=== PATIENT | female | born 1990 | race Caucasian/White ===

== ENCOUNTER 2017-09-10 22:51 | Emergency (ER) | payer OTHER ==
[2017-09-10 23:26] LABS: URINE HCG POC HCG POSITIVE (Negative)
[2017-09-11 00:08] LABS: AGAP ISTAT 16 mmol/L (6-14); BUN ISTAT 5 mg/dL (8-26); CHLORIDE ISTAT 101 mmol/L (98-110); CREATININE ISTAT 0.5 mg/dL (0.5-1.4); GLUCOSE ISTAT 106 mg/dL (70-99); HEMATOCRIT ISTAT 29 % (36-40); HEMOGLOBIN ISTAT 9.9 g/dL (12-15); ION CA ISTAT 1.24 mmol/L (1.13-1.32); POTASSIUM ISTAT 3.6 mmol/L (3.5-5.0); SODIUM ISTAT 137 mmol/L (135-145); TOT CO2 ISTAT 25 mmol/L (23-32)
== END 2017-09-11 00:37 | disposition home or self-care (01) ==
LOC: ER 09-11 00:37
DX: O46.92 Antepartum hemorrhage, unspecified, second trimester (principal); O99.012 Anemia complicating pregnancy, second trimester; Z3A.18 18 weeks gestation of pregnancy
CPT/HCPCS: 36415; 80047; 81025; 85014; 85018; 99282

== ENCOUNTER 2018-08-08 12:05 | Emergency (ER) | payer SELFPAY ==
[~2018-08-08] VITALS: Ht 162.6 cm; Wt 88.0 kg
[2018-08-08] MEDS ORDERED: fentaNYL PF VIAL 100 MCG/2 ML VIAL IV ONE (12:45)
[2018-08-08] MEDS ORDERED: ONDANSETRON PF 4 MG/2 ML VIAL. IV ONE (12:45)
[2018-08-08] MEDS ORDERED: IV NORMAL SALINE 1000ML BAG 1,000 ML IV ONE (12:45)
[2018-08-08 13:03] LABS: BASO % 1 % (0-3); EOS # 0.2 x10^3/uL (0.0-0.7); EOS % 3 % (0-3); HEMATOCRIT 38.9 % (36.0-47.0); HEMOGLOBIN 13.6 g/dL (12.0-15.5); LYMPH # 2.1 x10^3/uL (1.0-4.8); LYMPH % 30 % (24-48); MEAN CORPUSCULAR HEMOGLOBIN 30 pg (25-35); MEAN CORPUSCULAR HGB CONC 35 g/dL (31-37); MEAN CORPUSCULAR VOLUME 87 fL (79-100); MONO # 0.4 x10^3/uL (0.0-1.1); MONO % 5 % (0-9); NEUT # 4.3 x10^3uL (1.8-7.7); NEUT % 62 % (31-73); PLATELET COUNT 389 x10^3/uL (140-400); RED BLOOD COUNT 4.49 x10^6/uL (3.50-5.40); RED CELL DISTRIBUTION WIDTH 13.6 % (11.5-14.5)
[2018-08-08 13:06] LABS: CALCIUM 9.2 mg/dL (8.5-10.1); CREATININE 0.9 mg/dL (0.6-1.0); GFR 74.6; POTASSIUM 3.7 mmol/L (3.5-5.1)
[2018-08-08 13:12] LABS: ALBUMIN 3.5 g/dL (3.4-5.0); ALBUMIN/GLOBULIN RATIO 0.7 (1.0-1.7); TOTAL BILIRUBIN 0.3 mg/dL (0.2-1.0); TOTAL PROTEIN 8.3 g/dL (6.4-8.2)
--- NOTE | 2018-08-08 14:10 | RAD ---
Limited ultrasound abdomen 08/08/2018 INDICATION: Worsening right upper quadrant abdominal pain with history of known gallstones. COMPARISON: None available TECHNIQUE: Sonographic evaluation of the abdomen was performed utilizing grayscale and color Doppler. FINDINGS: Calcified gallstones are identified within the gallbladder. There is no pericholecystic fluid or gallbladder wall thickening. Negative sonographic Donohue sign. Common bile duct measures 3 mm. Aorta and IVC are normal in appearance. Hepatic parenchyma is homogeneous in echotexture. There is a hyperechoic mass measuring 18 x 13 x 21 mm in the right hepatic lobe is favored to represent a hemangioma in the absence of underlying hepatic disease. There is no intrahepatic or extrahepatic biliary ductal dilatation. Hepatopedal flow is identified in the portal venous system. Pancreas is normal in appearance. The right kidney measures 10.8 x 4.2 x 4.4 cm. There is no hydronephrosis. No suspicious renal mass. No calculi are identified. There is no free fluid in the right upper quadrant. IMPRESSION: 1. Cholelithiasis without sonographic evidence for acute cholecystitis. 2. Hyperechoic lesion within the liver measuring 18 x 13 x 21 mm. Finding is indeterminate, however most favors to represent hepatic hemangioma in the absence of hepatocellular disease. Correlate with hepatic enzymes. Hepatic adenoma may have similar appearance. Electronically signed by: Rosina Sharpe MD (08/08/2018 2:07 PM) [facility]
--- NOTE | 2018-08-08 14:23 | PHYS DOC ---
Past Medical History Past Medical History: Other Additional Past Medical Histor: CHOLECYSTITIS Past Surgical History: Other Additional Past Surgical Histo: LASIK Alcohol Use: None Drug Use: None Adult General Chief Complaint Chief Complaint: ABDOMINAL PAIN HPI HPI Patient is a 27 year old female presenting with recurrent abdominal pain since June 27 intermittent in nature comes and goes worse last few days with occasional vomiting unable to keep anything down she says she feels dehydrated she called Dr. Little and apparently there is a surgery that will be scheduled but they're working through some paperwork she tells me. Review of Systems Review of Systems Constitutional: Denies fever or chills [] Eyes: Denies change in visual acuity, redness, or eye pain [] HENT: Denies nasal congestion or sore throat [] Respiratory: Denies cough or shortness of breath [] Cardiovascular: No additional information not addressed in HPI [] GI: Musculoskeletal: Denies back pain or joint pain [] Integument: Denies rash or skin lesions [] Neurologic: Denies headache, focal weakness or sensory changes [] Endocrine: Denies polyuria or polydipsia [] All other systems were reviewed and found to be within normal limits, except as documented in this note. Current Medications Current Medications Current Medications Medications (Trade) Dose Ordered Sig/Bart Start Time Stop Time Status Last Admin Dose Admin Fentanyl Citrate (Fentanyl 2ml Vial) 50 mcg 1X ONCE 08/08/18 12:45 08/08/18 12:46 DC 08/08/18 12:52 50 MCG Ondansetron HCl (Zofran) 4 mg 1X ONCE 08/08/18 12:45 08/08/18 12:46 DC 08/08/18 12:51 4 MG Sodium Chloride 1,000 ml @ 1,000 mls/hr 1X ONCE 08/08/18 12:45 08/08/18 13:44 DC 08/08/18 12:51 1,000 MLS/HR Allergies Allergies Allergies Coded Allergies Type Severity Reaction Last Updated Verified No Known Drug Allergies 09/30/15 No Physical Exam Physical Exam Constitutional: Well developed, well nourished, no acute distress, non-toxic appearance. [] HENT: Normocephalic, atraumatic, bilateral external ears normal, oropharynx moist, no oral exudates, nose normal. [] Eyes: PERRLA, EOMI, conjunctiva normal, no discharge. [] Neck: Normal range of motion, no tenderness, supple, no stridor. [] Cardiovascular:Heart rate regular rhythm, no murmur [] Lungs & Thorax: Bilateral breath sounds clear to auscultation [] Abdomen: Bowel sounds normal, soft, right upper quadrant with negative Donohue's tenderness, no masses, no pulsatile masses. [] Skin: Warm, dry, no erythema, no rash. [] Back: No tenderness, no CVA tenderness. [] Extremities: No tenderness, no cyanosis, no clubbing, ROM intact, no edema. [] Neurologic: Alert and oriented X 3, normal motor function, normal sensory function, no focal deficits noted. [] Psychologic: Affect normal, judgement normal, mood normal. [] Current Patient Data Vital Signs Vital Signs Date Time Temp Pulse Resp B/P (MAP) Pulse Ox O2 Delivery O2 Flow Rate FiO2 08/08/18 12:10 97.7 94 18 122/70 (87) 97 Room Air 97.7 Lab Values Laboratory Tests Test 08/08/18 12:40 White Blood Count 7.0 x10^3/uL (4.0-11.0) Red Blood Count 4.49 x10^6/uL (3.50-5.40) Hemoglobin 13.6 g/dL (12.0-15.5) Hematocrit 38.9 % (36.0-47.0) Mean Corpuscular Volume 87 fL (79-100) Mean Corpuscular Hemoglobin 30 pg (25-35) Mean Corpuscular Hemoglobin Concent 35 g/dL (31-37) Red Cell Distribution Width 13.6 % (11.5-14.5) Platelet Count 389 x10^3/uL (140-400) Neutrophils (%) (Auto) 62 % (31-73) Lymphocytes (%) (Auto) 30 % (24-48) Monocytes (%) (Auto) 5 % (0-9) Eosinophils (%) (Auto) 3 % (0-3) Basophils (%) (Auto) 1 % (0-3) Neutrophils # (Auto) 4.3 x10^3uL (1.8-7.7) Lymphocytes # (Auto) 2.1 x10^3/uL (1.0-4.8) Monocytes # (Auto) 0.4 x10^3/uL (0.0-1.1) Eosinophils # (Auto) 0.2 x10^3/uL (0.0-0.7) Basophils # (Auto) 0.0 x10^3/uL (0.0-0.2) Sodium Level 140 mmol/L (136-145) Potassium Level 3.7 mmol/L (3.5-5.1) Chloride Level 104 mmol/L (98-107) Carbon Dioxide Level 23 mmol/L (21-32) Anion Gap 13 (6-14) Blood Urea Nitrogen 7 mg/dL (7-20) Creatinine 0.9 mg/dL (0.6-1.0) Estimated GFR (Cockcroft-Gault) 74.6 BUN/Creatinine Ratio 8 (6-20) Glucose Level 108 mg/dL (70-99) H Calcium Level 9.2 mg/dL (8.5-10.1) Total Bilirubin 0.3 mg/dL (0.2-1.0) Aspartate Amino Transferase (AST) 20 U/L (15-37) Alanine Aminotransferase (ALT) 24 U/L (14-59) Alkaline Phosphatase 89 U/L (46-116) Total Protein 8.3 g/dL (6.4-8.2) H Albumin 3.5 g/dL (3.4-5.0) Albumin/Globulin Ratio 0.7 (1.0-1.7) L Lipase 123 U/L (73-393) Laboratory Tests 08/08/18 12:40 Laboratory Tests 08/08/18 12:40 EKG EKG [] Radiology/Procedures Radiology/Procedures [] Impressions: IMPRESSION: 1. Cholelithiasis without sonographic evidence for acute cholecystitis. 2. Hyperechoic lesion within the liver measuring 18 x 13 x 21 mm. Finding is indeterminate, however most favors to represent hepatic hemangioma in the absence of hepatocellular disease. Correlate with hepatic enzymes. Hepatic adenoma may have similar appearance. Electronically signed by: Rosina Sharpe MD (08/08/2018 2:07 PM) [facility] Course & Med Decision Making Course & Med Decision Making Pertinent Labs and Imaging studies reviewed. (See chart for details) []27-year-old female presenting with right upper quadrant pain L these are essentially normal ultrasound shows C cholelithiasis with no infection. I did speak with Dr. Villegas who felt to be reasonable to manage this patient as an outpatient given that there is no cholecystitis I agree. vanda Barry Disclaimer Asha Disclaimer This electronic medical record was generated, in whole or in part, using a voice recognition dictation system. Departure Departure Impression: Primary Impression: Cholelithiasis Disposition: HOME, SELF-CARE Admitting Physician: Other Condition: STABLE Referrals: NO PCP (PCP) HARSH ALTAMIRANO MD Aug 08, 2018 14:23
[2018-08-08 14:26] LABS: BILIRUBIN,URINE SMALL (NEG); CLARITY,URINE CLEAR; COLOR,URINE AMBER; NITRITE,URINE NEGATIVE (NEG); PROTEIN,URINE 30 mg/dL (NEG-TRACE)
[2018-08-08] MEDS ORDERED: HYDR-3164 PO (14:29)
[2018-08-08] MEDS ORDERED: ONDA4TAB7 PO (14:29)
[2018-08-08 14:30] VITALS: BP 122/55
[2018-08-08 14:40] LABS: BACTERIA,URINE MODERATE /HPF (0-FEW); RBC,URINE 0 /HPF (0-2); SQUAMOUS EPITHELIAL CELL,UR MANY /LPF; WBC,URINE RARE /HPF (0-4)
== END 2018-08-08 14:46 | disposition home or self-care (01) ==
LOC: ER 12:05
DX: K80.20 Calculus of gallbladder without cholecystitis without obstruction (principal); R11.10 Vomiting, unspecified; E86.0 Dehydration
CPT/HCPCS: 36415; 76705; 80053; 81001; 81025; 83690; 85025; 87086; 96361; 96374; 96375; 99284; J2405; J3010; J7030

== ENCOUNTER 2018-08-30 09:29 | Day surgery (SDC) | payer SELFPAY ==
[~2018-08-30] VITALS: Ht 162.6 cm; Wt 87.1 kg
[~2018-08-30 09:29] MED LIST: HYDR-3164 PO; HYDROmorphone 2 MG/ML VIAL IV PRN; LEVO1TAB8 PO; LIDOCAINE 1% PF 2 ML VIAL. ID PRN; MORPHINE SULFATE 4 MG/ML VIAL. IV PRN; ONDA4TAB7 PO; ONDANSETRON PF 4 MG/2 ML VIAL. IV PRN; PROCHLORPERAZINE 10 MG/2 ML VIAL. IV PRN; fentaNYL PF VIAL 100 MCG/2 ML VIAL IV PRN
[2018-08-30] MEDS ORDERED: PROPOFOL 20 ML IV ONE (09:59)
[2018-08-30] MEDS ORDERED: ONDANSETRON PF 4 MG/2 ML VIAL. ONE (09:59)
[2018-08-30] MEDS ORDERED: LIDOCAINE 2% PF Vial for OR 5 ML VIAL. ONE (09:59)
[2018-08-30] MEDS ORDERED: fentaNYL PF VIAL 100 MCG/2 ML VIAL ONE ×2 (09:59→12:18)
[2018-08-30] MEDS ORDERED: DEXAMETHASONE SOD PHOS 20 MG/5 ML VIAL. ONE (09:59)
[2018-08-30] MEDS ORDERED: MIDAZOLAM HCL/PF 2 MG/2 ML VIAL. ONE (09:59)
[2018-08-30] MEDS: IV RINGERS,LACTATED 1000ML 1,000 ML IV SCH ×2 (10:12→12:43)
[2018-08-30] MEDS ORDERED: ROCURONIUM 50 MG/5 ML VIAL. ONE (10:30)
[2018-08-30 10:47] LABS: U PREG PATIENT NEGATIVE (NEG)
[2018-08-30] MEDS ORDERED: BUPIVAC MPF-EPI 0.5%-1:200000 30 ML VIAL. ONE (10:59)
[2018-08-30] MEDS ORDERED: GLUCAGON,HUMAN RECOMBINANT 1 MG/ML VIAL. ONE (10:59)
[2018-08-30] MEDS ORDERED: IOHEXOL 300 MG/ML 100ML VIAL. ONE (10:59)
[2018-08-30] MEDS ORDERED: SURGICEL HEMOSTAT 4X8 EACH. ONE (10:59)
[2018-08-30] MEDS ORDERED: SEVOFLURANE 61 TO 120 MINUTES. IH ONE (11:32)
[2018-08-30] MEDS ORDERED: NEOSTIGMINE METHYLSULFATE 5 MG/5 ML SYRINGE. ONE (11:33)
[2018-08-30] MEDS ORDERED: KETOROLAC 30 MG/ML INJ FOR OR. INJ ONE (12:14)
[2018-08-30] MEDS ORDERED: PROCHLORPERAZINE 10 MG/2 ML VIAL. ONE (12:18)
--- NOTE | 2018-08-30 12:20 | OP ---
DATE OF SURGERY: 08/30/2018 PREOPERATIVE DIAGNOSIS: Symptomatic cholelithiasis. POSTOPERATIVE DIAGNOSIS: Symptomatic cholelithiasis. PROCEDURE: 1. Laparoscopic cholecystectomy with cholangiogram. 2. Lysis of adhesions. SURGEON: Jeffery Acharya MD ANESTHESIA: General endotracheal. ESTIMATED BLOOD LOSS: 10 mL. INTRAVENOUS FLUIDS: 600 mL. INDICATIONS: The patient is a 27-year-old with epigastric and right upper quadrant pain. Ultrasound shows stones. She is brought for cholecystectomy. OPERATIVE FINDINGS: The liver was smooth and sharp. The gallbladder was supple. Cholangiograms were normal. Some omental adhesions were present on the inferior surface of the right lobe of the liver. A strand of omental adhesion to the abdominal wall from previous was present. Visual inspection of the remainder of the abdomen failed to reveal obvious abnormalities. DESCRIPTION OF PROCEDURE: The patient brought to the operating suite, given a general endotracheal anesthetic and the abdomen prepped and draped in usual sterile fashion. An infraumbilical incision was infiltrated with local anesthetic, incised and a 5 mm x 150 mm Visiport was used to safely gain access into the abdominal cavity, taking care to avoid injury to abdominal contents. Pneumoperitoneum established. Camera inserted. Inspection carried out with results as noted above. With the table in reverse Trendelenburg rolled to the left, the epigastric and midclavicular ports were placed under direct vision. The lateral port location was used for an "alligator" grasper. The gallbladder was retracted superolaterally and careful exposure of the cystic duct and cystic artery were carried out. The duct was clipped on the gallbladder side. Cholangiograms were made. These were normal. In light of this, the catheter was removed. The cystic duct was clipped x 3 and divided, taking care to avoid injury or compromise the common duct. Cystic artery was clipped x 2 and then divided and gallbladder freed from the bed with cautery dissection, placed in an EndoCatch bag. Table returned to level. Laparoscopic LigaSure was then used to take down the omental adhesions from the abdominal wall. Good hemostasis was present. Gallbladder delivered through the epigastric incision. Epigastric incision closed with interrupted 0 Vicryl suture. Intra-abdominal pressure decreased to 6 cm of water. No bleeding from the epigastric closure or from the midclavicular port site after its removal or from the location of the alligator grasper. Abdomen decompressed, camera slowly removed, no bleeding seen. Skin incisions closed with subcuticular 4-0 Monocryl. Steri-Strips and sterile dressings applied. The patient was awakened from her anesthetic and taken to the recovery room in satisfactory condition. JEFFERY ACHARYA MD DR: ROSANNE/sara JOB#: [id number] / [id number]
[2018-08-30] MEDS: fentaNYL PF VIAL 100 MCG/2 ML VIAL IV PRN ×2 (12:22→12:30)
--- NOTE | 2018-08-30 12:23 | RAD ---
EXAM: Intraoperative cholangiogram. HISTORY: Cholecystectomy. COMPARISON: None. FINDINGS: 3 fluoroscopic images are obtained. The images demonstrate cannulation and contrast opacification of the biliary tube and proximal duodenum. The common bile duct appears mildly dilated. No retained stone or stricture is seen. The total fluoroscopy time is 21 seconds. IMPRESSION: Intraoperative cholangiogram without a convincing retained stone or stricture. Electronically signed by: Luciana Field MD (08/30/2018 12:19 PM) [place] [id number]
[2018-08-30] MEDS ORDERED: oxyCODONE/APAP 5/325 1 TAB TABLET PO ONE (13:15)
[2018-08-30] MEDS ORDERED: OXYC1TAB15 PO (13:29)
[2018-08-30] MEDS ORDERED: ONDA4TAB7 PO (13:30)
[2018-08-30] MEDS ORDERED: DOCU-109 PO (13:31)
[2018-08-30 14:10] VITALS: BP 142/79
--- NOTE | 2018-08-31 16:10 | PATHOLOGY ---
[facility] Accession Number: [id number] . 01 Material submitted: . GALLBLADDER . 01 Clinical history: . Cholelithiasis . 02 Diagnosis: Gallbladder, laparoscopic cholecystectomy: - Cholelithiasis. - Cholesterolosis, focal. - Chronic cholecystitis. (JPM:mae; 08/31/2018) QMS/08/31/2018 . 02 Comment: There is no evidence of malignancy. . 02 Electronically signed: . Luisito Echevarria MD, Pathologist NPI- [id number] . 01 Gross description: . The specimen is received in formalin, labeled "StoneNovember, gallbladder", is an intact, distended gallbladder measuring 7.5 x 3.0 x 2.7 cm with a glistening, valdez-purple serosa showing congested vessels. The lumen is filled with yellow-green viscous bile and multiple multifaceted green-yellow calculi and its fragments measuring 4.2 x 3.0 x 0.8 cm in aggregate. The mucosa is valdez-brown and a diffusely covered by minute yellow flecks, and the wall has an average thickness of 0.1 cm. No discrete masses are identified. 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 (SWS; 08/30/2018) SHS/SHS . 02 Pathologist provided ICD-10: K80.10, K82.4 . 02 CPT . 872224 Specimen Comment: A courtesy copy of this report has been sent to Specimen Comment: [phone]. Specimen Comment: Report sent to Performed at: 01 [facility] [address], [place], [place] [id number] MD Richardson Lira MD Phone: [phone] Performed at: 02 [facility] [address] [place], [place] [id number] MD Luisito Echevarria MD Phone: [phone]
== END 2018-08-30 14:37 | disposition home or self-care (01) ==
LOC: SURG 09:29
PROVIDERS: ATTEND Surgery
DX: K80.10 Calculus of gallbladder with chronic cholecystitis without obstruction (principal); K66.0 Peritoneal adhesions (postprocedural) (postinfection); Z98.890 Other specified postprocedural states; Z91.040 Latex allergy status; Z91.048 Other nonmedicinal substance allergy status; Z79.899 Other long term (current) drug therapy; K21.9 Gastro-esophageal reflux disease without esophagitis; Z72.89 Other problems related to lifestyle
CPT/HCPCS: 47563; 74300; 81025; A7015; J0690; J0780; J1100; J1885; J2001; J2250; J2405; J2704; J2710; J3010; J3490; J7030; Q9967; J1610

== ENCOUNTER → 2021-04-03 | Outpatient (CLI) | payer MEDICAID ==
[~2021-04-03] MED LIST changes: +DOCU-109 PO; -HYDROmorphone 2 MG/ML VIAL IV PRN; -LIDOCAINE 1% PF 2 ML VIAL. ID PRN; -MORPHINE SULFATE 4 MG/ML VIAL. IV PRN; -ONDANSETRON PF 4 MG/2 ML VIAL. IV PRN; +OXYC1TAB15 PO; -PROCHLORPERAZINE 10 MG/2 ML VIAL. IV PRN; -fentaNYL PF VIAL 100 MCG/2 ML VIAL IV PRN
--- NOTE | 2021-04-03 16:06 | KCIC ---
EXAM: MRI RIGHT THUMB WITHOUT IV CONTRAST DATE: 04/03/2021 12:36 PM CLINICAL INDICATION: Reason: CLOSED DISPLACED FRACTURE OF THE PHALANX RIGHT THUMB / Spl. Instructions : Pt could not continue for additional repeats. / History: Hyperextension injury in January. Pain at the MCP joint and entire thumb. COMPARISON: None. TECHNIQUE: Multiplanar, multisequence MR imaging of the right thumb was performed without IV contrast . FINDINGS: Examination is limited by motion artifact and pulsation artifact. T1 marrow signal is preserved. No fracture is identified. No marrow edema in the thumb. Edema within the second metatarsal head may represent contusion or artifact from inhomogenous fat suppression. The radial collateral ligament and ulnar collateral ligament at the thumb MCP joint are intact. Gross ly normal muscle bulk without fatty atrophy. Visualized flexor and extensor tendons are intact. No tenosynovitis. IMPRESSION: Within the constraints of marked motion artifact: 1. No acute fracture. 2. Visualized flexor and extensor tendons are intact. 3. The radial collateral and ulnar collateral ligaments of the thumb MCP joint are intact. Electronically signed by: Donell Huertas MD (04/03/2021 4:04 PM) [place]
== END ==
LOC: KCIC MRI 12:22
PROVIDERS: ATTEND Plastic Surgery
DX: S62.501A Fracture of unspecified phalanx of right thumb, initial encounter for closed fracture (principal); X58.XXXA Exposure to other specified factors, initial encounter; Y93.89 Activity, other specified; Y92.89 Other specified places as the place of occurrence of the external cause; Y99.8 Other external cause status
CPT/HCPCS: 73218

== ENCOUNTER → 2021-11-20 | Outpatient (CLI) | payer MEDICAID ==
--- NOTE | 2021-11-20 11:23 | RAD ---
INDICATION: 30-year-old year-old female presents for right breast lump felt by primary care physician and right appear/purulent nipple discharge. No family history of breast cancer indicated. TECHNIQUE: Full field craniocaudal and mediolateral oblique images of both breasts with additional d iagnostic images were obtained using digital technique with tomosynthesis and analyzed with computer -aided detection software. Targeted high resolution sonography of the region of concern was also perf ormed. COMPARISON: None BREAST COMPOSITION: There are scattered areas of fibroglandular density. FINDINGS: Mammogram: Left breast: Focal asymmetry in the upper outer quadrant, middle depth. This area completely dissipat es on subsequent 2-D spot compression, consistent with parenchymal summation. There are no suspicious masses, architectural distortion, or suspicious calcifications. Right breast:No suspicious masses, architectural distortion, or suspicious discussed conditions. ULTRASOUND: Right breast retroareolar ultrasound as well as ultrasound the 12:00 position, posterior depth demons trate normal scattered fibroglandular tissue. No sonographic correlate for the patient's clinical com plaints. IMPRESSION: No evidence of malignancy. RECOMMENDATION: Recommend ongoing clinical management of patient's symptoms. If there is change in ni pple discharge or worsening symptoms then follow-up imaging is recommended. Recommend starting annual routine screening mammogram surrounding the age of 40, unless otherwise indicated. BI-RADS 1: Negative Electronically signed by: oRb Ramos DO (11/20/2021 10:00 AM) [facility]
== END ==
LOC: MAMMO 08:59
DX: N64.4 Mastodynia (principal); N64.52 Nipple discharge; N63.10 Unspecified lump in the right breast, unspecified quadrant
CPT/HCPCS: 76641; 77066

== ENCOUNTER 2021-12-03 14:20 | Emergency (ER) | payer MEDICAID ==
[~2021-12-03] VITALS: Ht 162.6 cm; Wt 93.3 kg
[2021-12-03] MEDS ORDERED: KETOROLAC 60 MG/2 ML VIAL. IM ONE (15:45)
--- NOTE | 2021-12-03 15:54 | RAD ---
XR CHEST 1V History: Left lateral rib pain. Comparison: None. Technique: AP radiograph of the chest. Findings: The lungs are adequately and symmetrically inflated. No airspace consolidation, pleural effusion or p neumothorax. The cardiomediastinal silhouette and pulmonary vasculature are within normal limits. No acute osseous abnormality. Soft tissues are unremarkable. Impression: 1. No acute cardiopulmonary process. Electronically signed by: Moody More MD (12/03/2021 3:52 PM) [id number]
[2021-12-03 17:12] LABS: BASO % 1 % (0-3); EOS # 0.6 x10^3/uL (0.0-0.7); EOS % 8 % (0-3); HEMOGLOBIN 13.3 g/dL (12.0-15.5); LYMPH # 2.3 x10^3/uL (1.0-4.8); LYMPH % 31 % (24-48); MEAN CORPUSCULAR HEMOGLOBIN 27 pg (25-35); MEAN CORPUSCULAR HGB CONC 33 g/dL (31-37); MEAN CORPUSCULAR VOLUME 82 fL (79-100); MONO # 0.5 x10^3/uL (0.0-1.1); MONO % 7 % (0-9); NEUT # 3.9 x10^3/uL (1.8-7.7); NEUT % 53 % (31-73); PLATELET COUNT 302 x10^3/uL (140-400); RED BLOOD COUNT 4.87 x10^6/uL (3.50-5.40); WHITE BLOOD COUNT 7.3 x10^3/uL (4.0-11.0)
[2021-12-03 17:18] LABS: BACTERIA,URINE FEW /HPF (0-FEW); WBC,URINE 0 /HPF (0-4)
[2021-12-03 17:23] LABS: CREATININE 0.9 mg/dL (0.6-1.0); GFR 72.6; POTASSIUM 3.9 mmol/L (3.5-5.1)
[2021-12-03 17:29] LABS: ALBUMIN 3.6 g/dL (3.4-5.0); TOTAL BILIRUBIN 0.2 mg/dL (0.2-1.0); TOTAL PROTEIN 7.3 g/dL (6.4-8.2)
[2021-12-03] MEDS ORDERED: LIDO700A21 TP (18:18)
[2021-12-03] MEDS ORDERED: IBUP-1007 PO (18:18)
--- NOTE | 2021-12-03 18:19 | PHYS DOC ---
Past Medical History Past Medical History: Other Additional Past Medical Histor: CHOLECYSTITIS Past Surgical History: Cholecystectomy, Tubal ligation, Other Additional Past Surgical Histo: ARLEEN Smoking Status: Never Smoker Alcohol Use: None Drug Use: None General Adult EDM: Chief Complaint: RIB PAIN HPI: HPI: Patient is a 31-year-old female who presents to the emergency department complaining of a slow onset of left-sided rib pain that started this past Thursday. 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 Patient reports the pain was about a 1 out of 10 at that time and slowly increased to a 4 5 out of 10 at its current pain scale. States she took an old meloxicam on Thursday without any help. Patient denies taking any further pain medications or trying nonpharmacological pain relief methods. Patient denies radiation of this pain, denies shortness of breath, chest or nasal congestion, denies chest palpitations. Patient reports increased pain with palpation, deep inspiration and expiration. Reports a decrease in pain if she is very still and take shallow breaths. Patient denies dizziness, syncopal or near syncopal episodes. Patient denies diaphoretic episodes. Patient denies history of cardiac disease. Patient denies a family history of sudden cardiac . Patient denies a history of smoking cigarettes, occasional drinker, denies illicit drug use. Review of Systems: Review of Systems: 14 body systems of review of systems have been reviewed. See HPI for pertinent positives and negative responses, otherwise all other systems are negative, nonpertinent or noncontributory. Constitutional: Negative except as outlined in HPI above. Skin: Negative except as outlined in HPI above. Eyes: Negative except as outlined in HPI above. HENT: Negative except as outlined in HPI above. Respiratory: Negative except as outlined in HPI above. Cardiovascular: Negative except as outlined in HPI above. GI: Negative except as outlined in HPI above. : Negative except as outlined in HPI above. Musculoskeletal: Negative except as outlined in HPI above. Integument: Negative except as outlined in HPI above. Neurologic: Negative except as outlined in HPI above. Endocrine: Negative except as outlined in HPI above. Lymphatic: Negative except as outlined in HPI above. Psychiatric: Negative except as outlined in HPI above. Heart Score: C/O Chest Pain: Yes HEART Score for Chest Pain: HEART Score for Chest Pain Response (Comments) Value History Slighlty/Non-Suspicious 0 ECG Normal 0 Age < 45 0 Risk Factors No Risk Factors 0 Troponin < Normal Limit 0 Total 0 Risk Factors: Risk Factors: DM, Current or recent (<one month) smoker, HTN, HLP, family history of CAD, obesity. Risk Scores: Score 0 - 3: 2.5% MACE over next 6 weeks - Discharge Home Score 4 - 6: 20.3% MACE over next 6 weeks - Admit for Clinical Observation Score 7 - 10: 72.7% MACE over next 6 weeks - Early Invasive Strategies Current Medications: Current Medications Medications (Trade) Dose Ordered Sig/Bart Start Time Stop Time Status Last Admin Dose Admin Ketorolac Tromethamine (Toradol Im) 60 mg 1X ONCE 12/03/21 15:45 12/03/21 15:46 DC 12/03/21 17:14 60 MG Allergies: Allergies: Allergies Coded Allergies Type Severity Reaction Last Updated Verified adhesive Allergy Intermediate 12/03/21 Yes latex Allergy Intermediate 12/03/21 Yes Physical Exam: PE: Constitutional: Well developed, well nourished, no acute distress, non-toxic appearance. 31-year-old female in no apparent distress. HENT: Normocephalic, atraumatic. Eyes: Conjunctiva normal, no discharge. Neck: Normal range of motion, no stridor. Cardiovascular: No cyanosis appreciated, distal cap refill less than 2 seconds. Regular rate and rhythm, heart sounds S1-S2 to auscultation. Lungs & Thorax: Patient is in no respiratory distress, no audible adventitious lung sounds appreciated. Lung sounds are clear to auscultation all lung hay. There is pain to palpation of the lateral left thorax, no crepitus appreciated, no subcu air appreciated, equal rise and fall of chest. There is no skin discoloration of the anterior thorax. Abdomen: Nontender, no abnormalities noted. Skin: Warm, dry, no erythema, no rash. Back: No tenderness, no deformities. Extremities: No tenderness, no cyanosis, no clubbing, ROM intact, no edema. Neurologic: Alert and oriented X 3, normal motor function, normal sensory functi on, no focal deficits noted. Psychologic: Affect normal, judgement normal, mood normal. Current Patient Data: Labs: Laboratory Tests Test 12/03/21 16:44 12/03/21 16:52 12/03/21 17:04 Urine Collection Type Unknown Urine Color (Auto) Yellow Urine Turbidity Clear Urine pH (Auto) 6.0 (<5.0-8.0) Urine Specific Tucker 1.023 (1.000-1.030) Urine Protein (Auto) Negative mg/dL (Negative) Urine Glucose (Auto)(UA) Negative mg/dL (Negative) Urine Ketones (Auto) Negative mg/dL (Negative) Urine Blood (Auto) Negative (Negative) Urine Nitrite Negative (Negative) Urine Bilirubin (Auto) Negative (Negative) Urine Urobilinogen (Auto) Normal mg/dL (Normal) Urine Leukocyte Esterase (Auto) Negative (Negative) Urine RBC 1-2 /HPF (0-2) Urine WBC 0 /HPF (0-4) Urine Squamous Epithelial Cells Occ /LPF Urine Bacteria Few /HPF (0-FEW) Urine Mucus Mod /LPF POC Urine HCG, Qualitative Hcg negative (Negative) White Blood Count 7.3 x10^3/uL (4.0-11.0) Red Blood Count 4.87 x10^6/uL (3.50-5.40) Hemoglobin 13.3 g/dL (12.0-15.5) Hematocrit 40.0 % (36.0-47.0) Mean Corpuscular Volume 82 fL (79-100) Mean Corpuscular Hemoglobin 27 pg (25-35) Mean Corpuscular Hemoglobin Concent 33 g/dL (31-37) Red Cell Distribution Width 15.0 % (11.5-14.5) H Platelet Count 302 x10^3/uL (140-400) Neutrophils (%) (Auto) 53 % (31-73) Lymphocytes (%) (Auto) 31 % (24-48) Monocytes (%) (Auto) 7 % (0-9) Eosinophils (%) (Auto) 8 % (0-3) H Basophils (%) (Auto) 1 % (0-3) Neutrophils # (Auto) 3.9 x10^3/uL (1.8-7.7) Lymphocytes # (Auto) 2.3 x10^3/uL (1.0-4.8) Monocytes # (Auto) 0.5 x10^3/uL (0.0-1.1) Eosinophils # (Auto) 0.6 x10^3/uL (0.0-0.7) Basophils # (Auto) 0.0 x10^3/uL (0.0-0.2) D-Dimer (Karina) < 0.27 ug/mlFEU Sodium Level 142 mmol/L (136-145) Potassium Level 3.9 mmol/L (3.5-5.1) Chloride Level 106 mmol/L (98-107) Carbon Dioxide Level 28 mmol/L (21-32) Anion Gap 8 (6-14) Blood Urea Nitrogen 9 mg/dL (7-20) Creatinine 0.9 mg/dL (0.6-1.0) Estimated GFR (Cockcroft-Gault) 72.6 BUN/Creatinine Ratio 10 (6-20) Glucose Level 84 mg/dL (70-99) Calcium Level 9.0 mg/dL (8.5-10.1) Total Bilirubin 0.2 mg/dL (0.2-1.0) Aspartate Amino Transferase (AST) 30 U/L (15-37) Alanine Aminotransferase (ALT) 39 U/L (14-59) Alkaline Phosphatase 92 U/L (46-116) Troponin I High Sensitivity < 4 ng/L (4-50) L Total Protein 7.3 g/dL (6.4-8.2) Albumin 3.6 g/dL (3.4-5.0) Albumin/Globulin Ratio 1.0 (1.0-1.7) Lipase 99 U/L (73-393) Laboratory Tests 12/03/21 17:04 Laboratory Tests 12/03/21 17:04 Vital Signs: Vital Signs Date Time Temp Pulse Resp B/P (MAP) Pulse Ox O2 Delivery O2 Flow Rate FiO2 12/03/21 17:17 70 14 99 12/03/21 14:20 98.3 105/60 (75) Room Air 98.3 EKG: EKG: EKG performed at 1640 by ED nursing staff shows a normal sinus rhythm without other ectopy, heart rate 66 bpm, parable 0.170, QTc interval 0.400, no acute STEMI, no ACS, no acute ischemia appreciated, EKG interpreted by ED attending physician Dr. Gómez. Radiology/Procedures: Radiology/Procedures: REASON: Left lateral rib pain PROCEDURE: CHEST AP ONLY XR CHEST 1V History: Left lateral rib pain. Comparison: None. Technique: AP radiograph of the chest. Findings: The lungs are adequately and symmetrically inflated. No airspace consolidation, pleural effusion or pneumothorax. The cardiomediastinal silhouette and pulmonary vasculature are within normal limits. No acute osseous abnormality. Soft tissues are unremarkable. Impression: 1. No acute cardiopulmonary process. Electronically signed by: Moody More MD (12/03/2021 3:52 PM) [id number] Course & Med Decision Making: Course & Med Decision Making Pertinent Labs and Imaging studies reviewed. (See chart for details) 31-year-old female, vital signs reviewed, presents to the emergency department complaining of left-sided rib pain since this past Thursday. Physical examination is concerning for musculoskeletal chest wall pain. Will order EKG, chest x-ray, CBC, CMP, D-dimer, high-sensitivity troponin I, lipase. Will give IM pain medication, ice pack to sore area. Urinalysis assay with urine test. Patient's urine is not infected, she is not per urine test, patient's EKG is unremarkable, patient's chest x-ray is unremarkable, patient's labs are unremarkable. Patient's HEART score is 0. This is unlikely a cardiore spiratory process. Will treat patient for musculoskeletal chest wall pain. Discussed findings with patient, discussed prescription medications and side effects, strict follow-up with primary care for ongoing symptoms, return to ER precautions and concerns were reviewed, patient gave verbal understanding of and is amenable to ED discharge planning. Discussed with the patient all findings and diagnostic testing as well as the need to follow-up with their primary care provider for further evaluation and treatment or return to the ED if any new or worsening symptoms. Strict return precautions were also discussed at length, the patient voiced understanding and agreement with the discharge planning. The patient was nontoxic in appearance, in no apparent distress, and hemodynamically stable at the time of disposition. Dragon Disclaimer: Dragon Disclaimer: This electronic medical record was generated, in whole or in part, using a voice recognition dictation system. Departure Departure Impression: Primary Impression: Left-sided chest wall pain Disposition: HOME / SELF CARE / HOMELESS Condition: GOOD Referrals: JOEL HAINES MD (PCP) Patient Instructions: Chest Wall Pain Additional Instructions: You were seen today in the emergency department for pain to the left side of your chest. Your emergency department work-up is reassuring and that your EKG did not show any concerning findings, the chest x-ray did not show broken ribs or other abnormalities that would require immediate attention by a specialist or hospitalization. Your lab work did not show any concerning findings. There is no evidence of heart attack, myocardial infarction, or acute coronary syndrome. There is no evidence of pneumonia or other cardiopulmonary process. You were given a Toradol injection for pain which she reported helped some. I am prescribing you ibuprofen and and lidocaine patches to help with pains. Please follow-up with your primary care physician for ongoing pain management. I have recommended a pain management physician Dr. Alli Montes De Oca, however you may see any primary care or pain management physician of your choice. Thank you for visiting our Emergency Department. It was a pleasure taking care of you today in the emergency department and we appreciate you trusting us with your care. If any additional problems come up don't hesitate to return to visit us. Please follow up with your primary care provider so they can plan additional care if needed and know about the problem that you had. If symptoms worsen come back to the Emergency Department. Any concerning symptoms that start such as chest pain, shortness of air, weakness or numbness on one side of the body, running high fevers or any other concerning symptoms return to the ER. Scripts Lidocaine (Lidocaine PATCH ) 1 Each Adh..patch 1 EACH TP DAILY for FOR LOCAL PAIN, #10 PATCH 0 Refills REMOVE AFTER 12 HOURS Prov: MONI RODRIGUEZ SIMULATION TECH 12/03/21 Ibuprofen (IBUPROFEN) 600 Mg Tablet 600 MG PO PRN Q6HRS PRN for INFLAMMATION, #30 TAB 0 Refills Prov: MONI RODRIGUEZ SIMULATION TECH 12/03/21 MONI RODRIGUEZ APRN Dec 03, 2021 18:18
[2021-12-03 18:23] VITALS: BP 106/65
--- NOTE | 2021-12-03 18:47 | EKG ---
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
== END 2021-12-03 18:48 | disposition home or self-care (01) ==
LOC: ER 14:20
DX: R07.81 Pleurodynia (principal); Z91.040 Latex allergy status; Z88.8 Allergy status to other drugs, medicaments and biological substances
CPT/HCPCS: 36415; 71045; 80053; 81001; 81025; 83690; 84484; 85025; 85379; 93005; 96372; 99285; J1885

== ENCOUNTER → 2022-01-06 | Outpatient (CLI) | payer MEDICAID ==
[~2022-01-06] MED LIST changes: +IBUP-1007 PO; +LIDO700A21 TP
--- NOTE | 2022-01-07 07:47 | KCIC ---
EXAMINATION: CT THORAX WO (CT CHEST WITHOUT IV CONTRAST) CLINICAL HISTORY: Chest wall pain. Left chest wall pain, left rib pain 1 month. Pain under Lt breast. Technique: Spiral CT acquisition of the chest from the thoracic inlet to the upper abdomen without co ntrast. CT Dose Reduction Employed: One or more of the following individualized dose reduction techniques wer e utilized for this examination: 1. Automated exposure control 2. Adjustment of the mA and/or kV ac cording to patient size 3. Use of iterative reconstruction technique. Comparison: Chest radiograph 12/03/2021 FINDINGS: Lung Parenchyma, Pleura, and Airways: No consolidation. 5 mm pulmonary nodule posterior right lower l obe (series 6 image 34). 4 mm pulmonary nodule posterior right lower lobe (series 6 image 42). Severa l scattered micronodules bilaterally. No pleural effusion. Central airways patent. Lower Neck, Mediastinum, and Heart: Visualized thyroid gland within normal limits. No mediastinal, hi lar, or axillary lymphadenopathy. Thoracic aorta and main pulmonary artery normal in caliber. No evid ence of coronary atherosclerotic calcification, however, this exam is not optimized for assessment of the coronary arteries. Normal heart size. No pericardial effusion. Bones and Soft Tissues: Nondisplaced fracture anterolateral left sixth rib, subacute in appearance. S mall bilateral cervical ribs at C7. No evidence of acute fracture. Upper Abdomen: Cholecystectomy. Ill-defined hypodense lesion in the posterior left kidney, likely a c yst. IMPRESSION: Healing nondisplaced anterolateral left sixth rib fracture, likely subacute. No evidence of acute fra cture. Nonspecific bilateral small pulmonary nodules, possibly postinflammatory/infectious. Electronically signed by: Lexx Muro DO (01/06/2022 1:46 PM) [facility]
== END ==
LOC: KCIC CT 10:16
PROVIDERS: ATTEND Family Medicine
DX: S22.32XD Fracture of one rib, left side, subsequent encounter for fracture with routine healing (principal); X58.XXXD Exposure to other specified factors, subsequent encounter; R91.8 Other nonspecific abnormal finding of lung field; N28.89 Other specified disorders of kidney and ureter; Z90.49 Acquired absence of other specified parts of digestive tract
CPT/HCPCS: 71250